=== PATIENT | male | born 1960 | race Caucasian/White ===

== ENCOUNTER 2023-05-16 05:27 | Emergency (ER) | payer OTHER ==
[~2023-05-16] VITALS: Ht 180.3 cm; Wt 79.4 kg
[~2023-05-16 05:27] MED LIST: BACTROBAN OINT22 GM PO; KEFLEX500 MG PO; MOTRIN800 MG PO
[2023-05-16] MEDS ORDERED: PREDNISONE50 MG PO (10:14)
[2023-05-16] MEDS ORDERED: CYCLOBENZAPRINE10 MG PO (10:14)
== END 2023-05-16 10:22 | disposition home or self-care (01) ==
LOC: ED 05:27
DX: M62.830 Muscle spasm of back (principal); M25.80 Other specified joint disorders, unspecified joint; Z91.040 Latex allergy status; Z98.890 Other specified postprocedural states